=== PATIENT | male | born 1950 | race Caucasian/White ===

== ENCOUNTER 2018-02-24 12:25 | Inpatient (IN) | payer MEDICARE, OTHER, SELFPAY ==
[2018-02-24] VITALS (7 sets, daily range): BP systolic 115–148; BP diastolic 63–95; PULSE 55–73; RESP 13–18; TEMP 36.7–36.8; O2SAT 94–98; BMI 38.0
--- NOTE | 2018-02-24 13:10 | DI.CT.S_ITS ---
PROCEDURE: CT ABDOMEN PELVIS W CON INDICATIONS: 67 year-old male with abdominal pain for 6 days, with decreased appetite. TECHNIQUE: After the administration of intravenous contrast, 5 mm thick sections acquired from the diaphragm to the symphysis. 5 mm coronal and sagittal reformats were acquired. For radiation dose reduction, the following was used: automated exposure control, adjustment of mA and/or kV according to patient size. COMPARISON: None. FINDINGS: Image quality: Excellent. ABDOMEN: Lung bases: Lung bases are clear. Heart size is normal. Solid organs: Liver is normal in size, with 3.0 x 1.3 cm lenticular hypodense lesion in the inferior right hepatic lobe. There is diffuse fatty infiltration of the liver. Gallbladder is surgically absent. Biliary system is non dilated. Pancreas enhances normally. Spleen is normal in size and enhancement. No adrenal nodules. Kidneys demonstrate normal size and enhancement, with asymmetric moderate right hydronephrosis. Multiple bilateral nonobstructing renal stones are present, measuring up to 4 mm on the right and 8 mm on the left. No ureteral stones identified; both ureters appear normal in caliber throughout their courses. Peritoneum and bowel: There is moderate dilation of multiple small bowel loops, without wall or fold thickening. A transition point is noted in the medial right lower quadrant on axial image 54 and coronal image 35, with the terminal ileum decompressed. The colon appears normal in caliber throughout, with scattered diverticula. The appendix appears normal. No free fluid or air. Nodes and vessels: No retroperitoneal or mesenteric adenopathy by size criteria. Aorta and inferior vena cava are normal in size, with scattered aortoiliac atherosclerosis. Miscellaneous: No ventral hernias. PELVIS: Genitourinary: Bladder wall thickness is normal. Prostate gland is normal in size. Miscellaneous: No inguinal hernias or adenopathy. Bones: No suspicious bony lesions. Incidental bone island is present superior to the left acetabular roof. No vertebral body compression fractures. There is lower lumbar and lower thoracic spine disc degeneration. IMPRESSION: 1. Findings of high grade distal small bowel obstruction just proximal to the terminal ileum, presumably secondary to adhesions in the absence of any visible masses or hernias. 2. Moderate asymmetric right hydronephrosis with normal ureteral caliber, consistent with background right ureteropelvic junction stricture. Multiple bilateral nonobstructing renal stones are present, measuring up to 8 mm on the left. 3. Diffuse fatty infiltration of the liver, along with indeterminate 3.0 x 1.3 cm lenticular hypovascular lesion in the inferior right hepatic lobe, possibly sequelae of remote ablation procedure. If no outside institution abdomen CTs are available for direct comparison, consider nonemergent liver protocol pre- and post contrast abdominal MRI for further characterization. Dictated by: Sloan Loyd M.D. on 02/24/2018 at 14:09 Approved by: Sloan Loyd M.D. on 02/24/2018 at 14:24
[2018-02-24] MEDS: ONDANSETRON 4 MG/2 ML INJ IV (13:23)
[2018-02-24] MEDS: SODIUM CHLORIDE 0.9% 1,000 ML 150 ML IV (13:23)
[2018-02-24 13:28] LABS: Add Manual Diff / Slide Review NO; Basophils Percent Auto 1.1 % (0-2); Hematocrit 45.9 % (41-53); Hemoglobin 16.2 g/dL (13.5-17.5); Lymphocytes Percent Auto 20.5 % (25-40); Mean Corpuscular HGB Conc 35.4 % (30-36); Mean Corpuscular Hemoglobin 32.6 PG (26-34); Mean Corpuscular Volume 92.2 fL (80-100); Monocytes Percent Auto 17.8 % (3-14); Neutrophils Absolute Auto 2600 /uL (3000-5900); Neutrophils Percent Auto 59.6 % (50-75); Platelet Count 149 X10^3/uL (150-400); Red Blood Cell Count 4.98 X10^6/uL (4.5-5.9); Red Cell Distribution Width 12.1 % (11.6-14.8); White Blood Cell Count 4.4 X10^3/uL (4.5-11.0)
--- NOTE | 2018-02-24 13:34 | ED_ITS ---
HPI - Abdominal Pain General Chief Complaint: Abdominal Pain Stated Complaint: SMALL INTESTINAL BLOCKAGE Time Seen by Provider: 02/24/18 13:09 Source: patient and RN notes reviewed Mode of arrival: ambulatory Limitations: no limitations History of Present Illness HPI narrative: Patient is a 67-year-old male who presents with abdominal pain ongoing for 1 week. He said that he felt some cramping which was relieved with have a Vicodin. He has been but no real vomiting. He is passing gas. He apparently had an outpatient x-ray which did show an obstruction today. He is instructed to immediately go to the ER. He denies any fever or chills. MD complaint: abdominal pain Onset (ago): week(s) (1) Related Data Home Medications Medication Instructions Recorded Confirmed Vitamin D3 2,200 units PO QHS 02/24/18 02/24/18 allopurinol 100 mg PO DAILY 02/24/18 02/24/18 aspirin 81 mg PO DAILY 02/24/18 02/24/18 atenolol 25 mg PO DAILY 02/24/18 02/24/18 coenzyme Q10 [Co Q-10] 100 mg PO BID 02/24/18 02/24/18 hydrochlorothiazide 25 mg PO DAILY 02/24/18 02/24/18 magnesium 0.5 tsp PO QPM 02/24/18 02/24/18 vitamin B complex 1 tab PO DAILY 02/24/18 02/24/18 Allergies Allergy/AdvReac Type Severity Reaction Status Date / Time No Known Drug Allergies Allergy Verified 02/24/18 13:14 Review of Systems Review of Systems All systems reviewed & are unremarkable except as noted in HPI and below Constitutional Denies chills, Denies fever(s), Denies lethargy and Denies weakness Cardiovascular Denies chest pain, Denies irregular heart rhythm, Denies lightheadedness, Denies palpitations, Denies dyspnea, Denies dyspnea on exertion and Denies orthopnea Respiratory Denies cough, Denies dyspnea, Denies dyspnea on exertion and Denies wheezing Gastrointestinal Gastrointestinal: Reports as per HPI Musculoskeletal Denies back pain, Denies muscle weakness, Denies numbness and Denies tingling Neurologic Denies numbness, Denies tingling and Denies weakness Endocrine Denies palpitations Allergic/Immunologic Denies wheezing PFSH Medical History Small bowel obstruction (Acute) Hypertension (Acute) Kidney stones (Resolved) Surgical History History of cholecystectomy (Resolved) Family History Grandfather Prostate cancer Mother Cancer Social History household members: spouse Smoking Status: Never smoker alcohol intake: never substance use type: does not use Exam Initial Vital Signs Initial Vital Signs: Vital Signs Temperature 98.2 F 02/24/18 13:02 Pulse Rate 73 02/24/18 13:02 Respiratory Rate 13 02/24/18 13:02 Blood Pressure 148/95 H 02/24/18 13:02 Pulse Oximetry 95 02/24/18 13:02 Const General: cooperative Nutritional Appearance: obese Orientation: alert, awake and oriented x3 Chest Chest: normal inspection of the chest Resp Effort & Inspection: normal respiratory effort, able to speak in complete sentences, no respiratory distress and no use of accessory muscles Auscultation: clear to auscultation bilaterally, no rales, no rhonchi and no wheezes Cardio Rate: regular rate Rhythm: regular rhythm Heart Sounds: no click, no gallops, no murmurs and no rubs Pulses: normal peripheral pulses GI Inspection: distended Palpation: firm, No guarding and No tender Auscultation: hyperactive bowel sounds Skin General: no rashes or lesions noted, No jaundice and No petechiae Neuro General: alert, oriented x3, gait normal and no focal motor deficits Speech: speech normal Course Orders Ordered: ED Orders 02/24/18 13:10 CT abdomen pelvis w con Stat 02/24/18 13:15 Complete Blood Count AUTO DIFF Stat Comprehensive Metabolic Panel Stat Lactate (Lactic Acid) Stat Lipase Stat 02/24/18 13:32 Ictotest Urine Stat Urinalysis and Microscopic Stat 02/25/18 05:00 Basic Metabolic Panel Routine Complete Blood Count AUTO DIFF Routine Enoxaparin Sodium (Lovenox) 40 mg SUBCUT 2100 JENNIFER Promethazine HCl 12.5 mg/ (Sodium Chloride) 50.5 mls @ 202 mls/hr IV Q6HR PRN PRN Reason: Nausea And Vomiting Sodium Chloride (Normal Saline 0.9%) 1,000 mls @ 125 mls/hr IV CONT JENNIFER Labetalol HCl (Trandate) 10 mg IV Q6HR PRN PRN Reason: DBP>90 or SBP>180 Morphine Sulfate (Morphine Sulfate) 4 mg IV Q4HR PRN PRN Reason: Pain, Moderate Ondansetron HCl (Zofran) 4 mg IV Q6HR JENNIFER Pantoprazole Sodium (Protonix) 40 mg IV DAILY JENNIFER Discontinued Medications Sodium Chloride (Normal Saline 0.9%) 1,000 mls @ 150 mls/hr IV CONT JENNIFER Last Admin: 02/24/18 13:23 Dose: 150 mls/hr Ondansetron HCl (Zofran) 4 mg IV NOW ONE Stop: 02/24/18 13:10 Last Admin: 02/24/18 13:23 Dose: 4 mg Vital Signs - 8 hr 02/24/18 13:02 02/24/18 13:11 02/24/18 14:00 Temperature 98.2 F 98.2 F Pulse Rate 73 73 59 L Respiratory Rate 13 13 15 Blood Pressure 148/95 H 148/95 H Blood Pressure [Right Arm] 119/71 Pulse Oximetry 95 95 94 02/24/18 15:00 02/24/18 16:32 02/24/18 17:15 Temperature 98.1 F Pulse Rate 57 L 57 L 62 Respiratory Rate 16 18 16 Blood Pressure 144/88 H Blood Pressure [Right Arm] 120/72 115/63 Pulse Oximetry 94 98 94 MDM - Abdominal Pain Lab Data Result diagrams: 02/24/18 13:15 02/24/18 13:15 Lab Results 02/24/18 02/24/18 02/24/18 Range/Units 13:15 13:15 13:15 WBC 4.4 L (4.5-11.0) X10^3/uL RBC 4.98 (4.5-5.9) X10^6/uL Hgb 16.2 (13.5-17.5) g/dL Hct 45.9 (41-53) % MCV 92.2 (80-100) fL MCH 32.6 (26-34) PG MCHC 35.4 (30-36) % RDW 12.1 (11.6-14.8) % Plt Count 149 L (150-400) X10^3/uL Neut % (Auto) 59.6 (50-75) % Lymph % (Auto) 20.5 L (25-40) % [place] % (Auto) 17.8 H (3-14) % Eos % (Auto) 1.0 L (2-4) % Baso % (Auto) 1.1 (0-2) % Neut # (Auto) 2600 L (5744-1198) /uL Sodium 131 L (137-145) mmol/L Potassium 2.9 L (3.4-5.1) mmol/L Chloride 81 L (98-107) mmol/L Carbon Dioxide 38 H (22-32) mmol/L BUN 49 H (9-20) mg/dL Creatinine 1.00 (0.66-1.25) mg/dL Estimated GFR > 60.0 (>60) mL/min BUN/Creatinine Ratio 49.0 H (6-22) Glucose 358 H (80-110) mg/dL Lactate 1.3 (0.7-2.1) mmol/L Calcium 10.1 (8.4-10.2) mg/dL Total Bilirubin 2.0 H (0.2-1.3) mg/dL AST 52 (17-59) IU/L ALT 73 H (21-72) IU/L Alkaline Phosphatase 74 (38-126) U/L Total Protein 7.1 (6.3-8.2) g/dL Albumin 4.0 (3.5-5.0) g/dL Globulin 3.1 (1.7-4.1) g/dL Albumin/Globulin Ratio 1.3 (1.0-2.8) Lipase 208 (23-300) U/L Urine Color Urine Appearance Urine pH (4.5-8.0) Ur Specific [place] (1.000-1.035) Urine Protein (Negative) Urine Glucose (UA) (Negative) g/dL Urine Ketones (NEGATIVE) Urine Occult Blood (Negative) Urine Nitrate (Negative) Urine Bilirubin (NEGATIVE) Urine Ictotest (Negative) Urine Urobilinogen (0.2) E.U./dL Ur Leukocyte Esterase (NEGATIVE) Urine RBC (0-5/HPF) Urine WBC (0-5/HPF) Urine Bacteria (None) Ur Culture Indicated? Micro UA Comment 02/24/18 Range/Units 13:32 WBC (4.5-11.0) X10^3/uL RBC (4.5-5.9) X10^6/uL Hgb (13.5-17.5) g/dL Hct (41-53) % MCV (80-100) fL MCH (26-34) PG MCHC (30-36) % RDW (11.6-14.8) % Plt Count (150-400) X10^3/uL Neut % (Auto) (50-75) % Lymph % (Auto) (25-40) % [place] % (Auto) (3-14) % Eos % (Auto) (2-4) % Baso % (Auto) (0-2) % Neut # (Auto) (7143-7917) /uL Sodium (137-145) mmol/L Potassium (3.4-5.1) mmol/L Chloride (98-107) mmol/L Carbon Dioxide (22-32) mmol/L BUN (9-20) mg/dL Creatinine (0.66-1.25) mg/dL Estimated GFR (>60) mL/min BUN/Creatinine Ratio (6-22) Glucose (80-110) mg/dL Lactate (0.7-2.1) mmol/L Calcium (8.4-10.2) mg/dL Total Bilirubin (0.2-1.3) mg/dL AST (17-59) IU/L ALT (21-72) IU/L Alkaline Phosphatase (38-126) U/L Total Protein (6.3-8.2) g/dL Albumin (3.5-5.0) g/dL Globulin (1.7-4.1) g/dL Albumin/Globulin Ratio (1.0-2.8) Lipase (23-300) U/L Urine Color Yellow Urine Appearance Clear Urine pH 5.0 (4.5-8.0) Ur Specific [place] 1.015 (1.000-1.035) Urine Protein Negative (Negative) Urine Glucose (UA) 2+ H (Negative) g/dL Urine Ketones Trace H (NEGATIVE) Urine Occult Blood Negative (Negative) Urine Nitrate Negative (Negative) Urine Bilirubin 1+ H (NEGATIVE) Urine Ictotest Negative (Negative) Urine Urobilinogen 2.0 H (0.2) E.U./dL Ur Leukocyte Esterase Negative (NEGATIVE) Urine RBC None seen (0-5/HPF) Urine WBC None seen (0-5/HPF) Urine Bacteria None seen (None) Ur Culture Indicated? Cult not indicated Micro UA Comment Microscopic normal Imaging Data CT scan - abdomen: Radiologist's impression: View Report History [address] [address] [address] Scan Report Signed Patient: Salvador Gillette MR#: [id number] : 1950 Acct:[id number] Age/Sex: 67 / M Date of Service: 02/24/18 Loc: ED Accession Number: [id number] Procedure: CT abdomen pelvis w con Ordering Provider: Milagros Nathan D.O. PROCEDURE: CT ABDOMEN PELVIS W CON INDICATIONS: 67 year-old male with abdominal pain for 6 days, with decreased appetite. TECHNIQUE: After the administration of intravenous contrast, 5 mm thick sections acquired from the diaphragm to the symphysis. 5 mm coronal and sagittal reformats were acquired. For radiation dose reduction, the following was used: automated exposure control, adjustment of mA and/or kV according to patient size. COMPARISON: None. FINDINGS: Image quality: Excellent. ABDOMEN: Lung bases: Lung bases are clear. Heart size is normal. Solid organs: Liver is normal in size, with 3.0 x 1.3 cm lenticular hypodense lesion in the inferior right hepatic lobe. There is diffuse fatty infiltration of the liver. Gallbladder is surgically absent. Biliary system is non dilated. Pancreas enhances normally. Spleen is normal in size and enhancement. No adrenal nodules. Kidneys demonstrate normal size and enhancement, with asymmetric moderate right hydronephrosis. Multiple bilateral nonobstructing renal stones are present, measuring up to 4 mm on the right and 8 mm on the left. No ureteral stones identified; both ureters appear normal in caliber throughout their courses. Peritoneum and bowel: There is moderate dilation of multiple small bowel loops, without wall or fold thickening. A transition point is noted in the medial right lower quadrant on axial image 54 and coronal image 35, with the terminal ileum decompressed. The colon appears normal in caliber throughout, with scattered diverticula. The appendix appears normal. No free fluid or air. Nodes and vessels: No retroperitoneal or mesenteric adenopathy by size criteria. Aorta and inferior vena cava are normal in size, with scattered aortoiliac atherosclerosis. Miscellaneous: No ventral hernias. PELVIS: Genitourinary: Bladder wall thickness is normal. Prostate gland is normal in size. Miscellaneous: No inguinal hernias or adenopathy. Bones: No suspicious bony lesions. Incidental bone island is present superior to the left acetabular roof. No vertebral body compression fractures. There is lower lumbar and lower thoracic spine disc degeneration. IMPRESSION: 1. Findings of high grade distal small bowel obstruction just proximal to the terminal ileum, presumably secondary to adhesions in the absence of any visible masses or hernias. 2. Moderate asymmetric right hydronephrosis with normal ureteral caliber, consistent with background right ureteropelvic junction stricture. Multiple bilateral nonobstructing renal stones are present, measuring up to 8 mm on the left. 3. Diffuse fatty infiltration of the liver, along with indeterminate 3.0 x 1.3 cm lenticular hypovascular lesion in the inferior right hepatic lobe, possibly sequelae of remote ablation procedure. If no outside institution abdomen CTs are available for direct comparison, consider nonemergent liver protocol pre- and post contrast abdominal MRI for further characterization. Dictated by: Sloan Loyd M.D. on 02/24/2018 at 14:09 MDM Narrative Medical decision making narrative: Patient is found to have small-bowel obstruction, high-grade stenosis. NG tube is placed. Dr. Candelario is accepted patient. Patient not complaining of pain or nausea. Discharge Plan Departure Patient Disposition: Admitted As Inpatient Clinical Impression: Small bowel obstruction Discharge Date/Time: 02/24/18 17:15 Interventions: ED Discharge Assessment Last Done: 02/24/18 16:24 Admit Date/Time: 02/24/18 16:30 Admit Provider: Devin Candelario
[2018-02-24 13:35] LABS: Alanine Aminotransferase 73 IU/L (21-72); Albumin Globulin Ratio 1.3 (1.0-2.8); Alkaline Phosphatase 74 U/L (38-126); Aspartate Aminotransferase 52 IU/L (17-59); Blood Urea Nitrogen 49 mg/dL (9-20); Calcium 10.1 mg/dL (8.4-10.2); Carbon Dioxide 38 mmol/L (22-32); Chloride 81 mmol/L (98-107); Estimated Glomerular Filt Rate > 60.0 mL/min (>60); Globulin 3.1 g/dL (1.7-4.1); Glucose 358 mg/dL (80-110); HEMOLYSIS 70 (0-50); Lipase 208 U/L (23-300); Potassium 2.9 mmol/L (3.4-5.1); Sodium 131 mmol/L (137-145); Total Protein 7.1 g/dL (6.3-8.2)
[2018-02-24 13:36] LABS: Bacteria Urine None Seen; RBC Urine None Seen (0-5/HPF); WBC Urine None Seen (0-5/HPF)
[2018-02-24 13:37] LABS: Appearance Urine UA CLEAR; Bilirubin Urine UA 1+ (NEGATIVE); Color Urine UA YELLOW; Glucose Urine UA 2+ g/dL (Negative); Ketones Urine UA TRACE (NEGATIVE); Leukocyte Esterase Urine UA NEGATIVE (NEGATIVE); Nitrite Urine UA Negative (Negative); Occult Blood Urine UA NEGATIVE (Negative); Protein Urine UA NEGATIVE (Negative); Specific Gravity Urine UA 1.015 (1.000-1.035)
[2018-02-24 13:39] LABS: Lactate (Lactic Acid) 1.3 mmol/L (0.7-2.1)
[2018-02-24 13:44] LABS: Ictotest Urine Negative (Negative)
[2018-02-24 13:45] LABS: Culture Indicated Urine Cult Not Indicated; Urine Comments Microscopic Normal
--- NOTE | 2018-02-24 15:22 | PC.NURSE ---
14F NG tube inserted into the left nare. Pt tolerated the procedure well.
--- NOTE | 2018-02-24 17:47 | P.HP_ITS ---
History of Present Illness Chief complaint: Small bowel obstruction Narrative: Salvador Gillette is a 67 year old male who presented to the emergency department earlier this afternoon with a one-week history of abdominal distention, belching, poor appetite, and decreased bowel function. He denies any fever or chills. He has had only 1 episode of nausea and vomiting approximately 5 days ago now but none since. He remains slightly anorexic. He has been tolerating some liquids orally including a supplemental protein shake daily. He has not eaten a normal meal in approximately 7 days. He generally has 1 bowel movement per day. He has had only 2 bowel movements in the last 5 or 6 days which he describes as somewhat small in caliber. There were several small liquid stools during 1 of those episodes as well. No melena, hematochezia, or bright red blood per rectum. Denies pain with defecation. No significant flatus between bowel function. He had several episodes of crampy diffuse abdominal pain several days ago for which he took some oral narcotics 1 time. He denies pain currently. Still feeling subjectively distended however. Denies any dysuria or hematuria. He has never had any similar symptoms in the past. Patient History Medical History Small bowel obstruction (Acute) Hypertension (Acute) Kidney stones (Resolved) Surgical History History of cholecystectomy (Resolved) Family & Social History Tobacco & Substance use: Smoking Status Never smoker alcohol intake 1-2 drinks daily Meds Home Medications Medication Instructions Recorded Confirmed Type Vitamin D3 2,200 units PO QHS 02/24/18 02/24/18 History allopurinol 100 mg PO DAILY 02/24/18 02/24/18 History aspirin 81 mg PO DAILY 02/24/18 02/24/18 History atenolol 25 mg PO DAILY 02/24/18 02/24/18 History coenzyme Q10 [Co Q-10] 100 mg PO BID 02/24/18 02/24/18 History hydrochlorothiazide 25 mg PO DAILY 02/24/18 02/24/18 History magnesium 0.5 tsp PO QPM 02/24/18 02/24/18 History vitamin B complex 1 tab PO DAILY 02/24/18 02/24/18 History Allergies Allergy/AdvReac Type Severity Reaction Status Date / Time No Known Drug Allergies Allergy Verified 02/24/18 13:14 Review of Systems Constitutional Constitutional: Reports anorexia, Denies chills, Denies fatigue, Denies fever(s) , Reports snoring and Denies weakness ENT Ears, Nose, Mouth, and Throat: No difficulty swallowing, No dizziness and No hoarseness Cardiovascular Cardiovascular: Denies chest pain at rest, Denies chest pain with activity and Reports irregular heart rhythm (History of atrial fibrillation, resolved after ablation) Respiratory Respiratory: Reports snoring and Denies wheezing Gastrointestinal Gastrointestinal: Reports as per HPI and Denies dysphagia Genitourinary Genitourinary: Reports as per HPI Musculoskeletal Musculoskeletal: Denies back pain and Denies joint swelling Integumentary/Breasts Skin/Breast: Denies jaundice Neurologic Neurologic: Denies dizziness and Denies weakness Psychiatric Psychiatric: Denies anxiety Endocrine Endocrine: Denies fatigue, Denies polydipsia and Denies polyuria Hematologic/Lymphatic Hematologic/Lymphatic: Denies easy bruising and Denies lymphadenopathy Allergic/Immunologic Allergic/Immunologic: Denies wheezing Exam Vital Signs (past 8 hours): Vital Signs - 8 hr 3 02/24/18 13:02 02/24/18 13:11 02/24/18 14:00 Temperature 98.2 F 98.2 F Pulse Rate 73 73 59 L Respiratory Rate 13 13 15 Blood Pressure 148/95 H 148/95 H Blood Pressure [Right Arm] 119/71 Pulse Oximetry 95 95 94 3 02/24/18 15:00 02/24/18 16:32 Temperature Pulse Rate 57 L 57 L Respiratory Rate 16 18 Blood Pressure Blood Pressure [Right Arm] 120/72 115/63 Pulse Oximetry 94 98 Pulse Oximetry 98 Oxygen Delivery Method Room Air Narrative Exam Narrative: Well-nourished well-developed male lying comfortably in bed in the emergency department in no acute distress. Alert oriented x3. accompanies him at the bedside during my visit. Sclera are nonicteric Neck is supple without lymphadenopathy. Trachea is midline Chest is clear to auscultation bilaterally. He has a few irregular beats on auscultation. No wheezes or rhonchi Abdomen demonstrates few active bowel sounds. He is markedly tympanitic and distended throughout. He has palpable loops of dilated bowel. However, he is completely nontender to palpation with no guarding or rebound. I appreciate no masses. He has well-healed laparoscopic scars with a small umbilical hernia which is easily reducible. Femoral pulses are palpable bilaterally and symmetric. No inguinal lymphadenopathy. No inguinal masses. No inguinal hernias. Rectal examination reveals normal tone with no external lesions or hemorrhoids. Prostate is smooth without nodules. He is completely nontender to palpation. No rectal masses. There is soft brown stool in the vault. No gross blood. Extremities show no clubbing or cyanosis. He has hyperpigmentation of the pretibial area circumferentially bilaterally consistent with venous insufficiency. Trace edema bilaterally at the ankles. Objective Labs Result Diagrams: 02/24/18 13:15 02/24/18 13:15 Labs: Laboratory Results - last 24 hr 02/24/18 02/24/18 02/24/18 13:15 13:15 13:15 WBC 4.4 L RBC 4.98 Hgb 16.2 Hct 45.9 MCV 92.2 MCH 32.6 MCHC 35.4 RDW 12.1 Plt Count 149 L Neut % (Auto) 59.6 Lymph % (Auto) 20.5 L [place] % (Auto) 17.8 H Eos % (Auto) 1.0 L Baso % (Auto) 1.1 Neut # (Auto) 2600 L Sodium 131 L Potassium 2.9 L Chloride 81 L Carbon Dioxide 38 H BUN 49 H Creatinine 1.00 Estimated GFR > 60.0 BUN/Creatinine Ratio 49.0 H Glucose 358 H Lactate 1.3 Calcium 10.1 Total Bilirubin 2.0 H AST 52 ALT 73 H Alkaline Phosphatase 74 Total Protein 7.1 Albumin 4.0 Globulin 3.1 Albumin/Globulin Ratio 1.3 Lipase 208 Urine Color Urine Appearance Urine pH Ur Specific [place] Urine Protein Urine Glucose (UA) Urine Ketones Urine Occult Blood Urine Nitrate Urine Bilirubin Urine Ictotest Urine Urobilinogen Ur Leukocyte Esterase Urine RBC Urine WBC Urine Bacteria Ur Culture Indicated? Micro UA Comment 02/24/18 13:32 WBC RBC Hgb Hct MCV MCH MCHC RDW Plt Count Neut % (Auto) Lymph % (Auto) [place] % (Auto) Eos % (Auto) Baso % (Auto) Neut # (Auto) Sodium Potassium Chloride Carbon Dioxide BUN Creatinine Estimated GFR BUN/Creatinine Ratio Glucose Lactate Calcium Total Bilirubin AST ALT Alkaline Phosphatase Total Protein Albumin Globulin Albumin/Globulin Ratio Lipase Urine Color Yellow Urine Appearance Clear Urine pH 5.0 Ur Specific [place] 1.015 Urine Protein Negative Urine Glucose (UA) 2+ H Urine Ketones Trace H Urine Occult Blood Negative Urine Nitrate Negative Urine Bilirubin 1+ H Urine Ictotest Negative Urine Urobilinogen 2.0 H Ur Leukocyte Esterase Negative Urine RBC None seen Urine WBC None seen Urine Bacteria None seen Ur Culture Indicated? Cult not indicated Micro UA Comment Microscopic normal Assessment & Plan (1) History of cholecystectomy: Problem details: Resolved. No current issue Current visit: Yes Status: Resolved (2) Kidney stones: Problem details: Resolved. No current issue Current visit: Yes Status: Resolved (3) Small bowel obstruction: Problem details: I have personally reviewed the patient's CT scan with the staff radiologist. He has evidence of a distal small-bowel obstruction with transition point proximal to the terminal ileum. No obvious thickened loops of bowel. Current visit: Yes Status: Acute (4) Colon polyps: Current visit: Yes Status: Acute Plan: Plan: I discussed my impression findings with the patient and his in detail. He has no evidence of ischemic bowel. At this time he has no evidence for acute surgical intervention although I do not have a clear etiology for his bowel obstruction, and his symptoms have lasted 1 week now. Small possibility of adhesions from laparoscopic cholecystectomy but this would be less likely. He has had normal colonoscopy 2 years ago, and this is clearly a small bowel obstruction rather than large bowel pathology. No history or symptoms to suggest inflammatory bowel disease. He has evidence of significant dehydration and requires aggressive fluid resuscitation. Nasogastric tube has been inserted per emergency department. Continue this to low intermittent suction. NPO other than ice chips. Repeat his CBC and basic metabolic panel tomorrow. If he does not improve over the next 24 hours or so then he may very likely require exploratory laparotomy. If he does show evidence of improvement with regard to return of bowel function and decreased distention then we will continue the conservative non operative measures as above. I explained to him clearly that if he has evidence of clinical deterioration such as progressive pain, fever, and/or leukocytosis then he would require urgent laparotomy. All questions were answered to his satisfaction, and he voiced understanding. Orders were written.
[2018-02-24] MEDS: SODIUM CHLORIDE 0.9% 1,000 ML 125 ML IV (18:30)
--- NOTE | 2018-02-24 18:35 | PC.NURSE ---
Pt awake, denies discomfort. SpO2 97% RA. NG intact/patent. IV infusing as per orders w/o incidence. Oriented to room and call system. Call light w/in reach.
[2018-02-24] MEDS: ENOXAPARIN 40 MG/0.4 ML SYRINGE SUBCUT (21:52)
[2018-02-25] VITALS (8 sets, daily range): BP systolic 117–141; BP diastolic 73–81; PULSE 53–66; RESP 15–22; TEMP 36.6–37.3; O2SAT 94–97
--- NOTE | 2018-02-25 | DI.RAD.S_ITS ---
PROCEDURE: FL SMALL BOWEL FOLLOW THROUGH INDICATIONS: small bowel obstruction, partial COMPARISON: [facility], CR, XR ACUTE ABDOMEN SERIES, 02/25/2018, 5:11. FINDINGS: KUB: Preprocedural mineral engineer film demonstrates a nonobstructed small bowel gas pattern. No suspicious abdominal calcifications. Visualized solid organ contours appear normal. No suspicious bony abnormalities. Surgical clips are present in the right upper quadrant. Tip of the NG tube is present. Small bowel: There is normal transit time of Gastrografin through the small bowel despite partial obstruction, contrast in the colon at 2 hours 30 minutes. Small bowel loops are of dilated caliber throughout. Mucosal folds are smooth and of normal thickness. No strictures, intraluminal masses, or extrinsic mass effects are noted. The terminal ileum is not identified but contrast in the proximal colon is verified by spot images at fluoroscopy. IMPRESSION: Partial small bowel obstruction. Transit of Gastrografin through the small intestine at 2-1/2 hours. Dictated by: Hector Stapleton M.D. on 02/25/2018 at 12:27 Approved by: Hector Stapleton M.D. on 02/25/2018 at 12:31
--- NOTE | 2018-02-25 | DI.RAD.S_ITS ---
PROCEDURE: XR ACUTE ABDOMEN SERIES INDICATIONS: small bowel obstruction, distension TECHNIQUE: One view chest and two views of the abdomen were acquired. COMPARISON: [facility], CT, CT ABDOMEN PELVIS W CON, 02/24/2018, 13:33. FINDINGS: Surgical changes and devices: Nasogastric tube appears to be below the diaphragm. Cholecystectomy clips. Chest: Lungs are clear. Heart size is normal. No pleural effusions. No pneumoperitoneum. Abdomen: Bowel gas pattern is abnormal with multiple dilated small bowel loops showing stairstep air-fluid levels consistent with partial obstruction. No suspicious calcifications. Visualized solid organ contours appear normal. Contrast present within the urinary bladder from prior CT imaging. Bones: No suspicious bony lesions. IMPRESSION: 1. Nasogastric tube appears to be in expected location. 2. Status post cholecystectomy. 3. High-grade partial small bowel obstruction 4. No acute cardiopulmonary abnormality. Dictated by: Hector Stapleton M.D. on 02/25/2018 at 8:27 Approved by: Hector Stapleton M.D. on 02/25/2018 at 8:31
[2018-02-25] MEDS: SODIUM CHLORIDE 0.9% 1,000 ML 125 ML IV ×2 (00:41→18:21)
[2018-02-25 07:02] LABS: Add Manual Diff / Slide Review NO; Basophils Percent Auto 0.7 % (0-2); Hematocrit 43.1 % (41-53); Hemoglobin 15.2 g/dL (13.5-17.5); Lymphocytes Percent Auto 21.8 % (25-40); Mean Corpuscular HGB Conc 35.4 % (30-36); Mean Corpuscular Hemoglobin 32.7 PG (26-34); Mean Corpuscular Volume 92.5 fL (80-100); Monocytes Percent Auto 17.1 % (3-14); Neutrophils Absolute Auto 2500 /uL (3000-5900); Neutrophils Percent Auto 58.4 % (50-75); Platelet Count 135 X10^3/uL (150-400); Red Blood Cell Count 4.66 X10^6/uL (4.5-5.9); Red Cell Distribution Width 12.2 % (11.6-14.8); White Blood Cell Count 4.3 X10^3/uL (4.5-11.0)
[2018-02-25 07:05] LABS: HEMOLYSIS < 15 (0-50)
[2018-02-25 07:06] LABS: BUN Creatinine Ratio 42.2 (6-22); Blood Urea Nitrogen 38 mg/dL (9-20); Calcium 9.1 mg/dL (8.4-10.2); Carbon Dioxide 39 mmol/L (22-32); Chloride 88 mmol/L (98-107); Estimated Glomerular Filt Rate > 60.0 mL/min (>60); Glucose 230 mg/dL (80-110); Sodium 136 mmol/L (137-145)
[2018-02-25 07:17] LABS: Potassium 2.5 mmol/L (3.4-5.1)
[2018-02-25] MEDS: PANTOPRAZOLE 40 MG VIAL IV (09:00)
--- NOTE | 2018-02-25 09:14 | P.PN_ITS ---
Subjective Date Patient Seen: 02/25/18 Time Patient Seen: 09:10 Interval history: Patient continues to deny pain. No nausea or vomiting. Remains markedly distended. Did pass a small amount of flatus early this morning but none since. No bowel movement. Not particularly hungry this morning. Complaining mostly of irritation from the NG tube. Exam Vital Signs (past 8 hours): Vital Signs - 8 hr 3 02/25/18 05:50 02/25/18 07:46 Temperature 97.9 F 98.3 F Pulse Rate 56 L 57 L Respiratory Rate 16 22 Blood Pressure 125/73 H 128/76 H Pulse Oximetry 94 94 Pulse Oximetry 94 Oxygen Delivery Method CPAP Narrative Exam Narrative: Well-nourished well-developed male sitting comfortably in bedside chair in no acute distress. Alert oriented x3. His is at the bedside during my visit this morning. Nasogastric tube remains in position draining mostly clear fluid consistent with his ice chips intake. No significant bilious output. Regular rate and rhythm Abdomen remains markedly distended and tympanitic with palpable loops of bowel. However, he is completely soft and nontender. No guarding or rebound. No masses otherwise. Objective Labs Result Diagrams: 02/25/18 06:15 02/25/18 06:15 Labs: Laboratory Results - last 24 hr 02/24/18 02/24/18 02/24/18 13:15 13:15 13:15 WBC 4.4 L RBC 4.98 Hgb 16.2 Hct 45.9 MCV 92.2 MCH 32.6 MCHC 35.4 RDW 12.1 Plt Count 149 L Neut % (Auto) 59.6 Lymph % (Auto) 20.5 L [place] % (Auto) 17.8 H Eos % (Auto) 1.0 L Baso % (Auto) 1.1 Neut # (Auto) 2600 L Sodium 131 L Potassium 2.9 L Chloride 81 L Carbon Dioxide 38 H BUN 49 H Creatinine 1.00 Estimated GFR > 60.0 BUN/Creatinine Ratio 49.0 H Glucose 358 H Lactate 1.3 Calcium 10.1 Total Bilirubin 2.0 H AST 52 ALT 73 H Alkaline Phosphatase 74 Total Protein 7.1 Albumin 4.0 Globulin 3.1 Albumin/Globulin Ratio 1.3 Lipase 208 Urine Color Urine Appearance Urine pH Ur Specific [place] Urine Protein Urine Glucose (UA) Urine Ketones Urine Occult Blood Urine Nitrate Urine Bilirubin Urine Ictotest Urine Urobilinogen Ur Leukocyte Esterase Urine RBC Urine WBC Urine Bacteria Ur Culture Indicated? Micro UA Comment 02/24/18 02/25/18 02/25/18 13:32 06:15 06:15 WBC 4.3 L RBC 4.66 Hgb 15.2 Hct 43.1 MCV 92.5 MCH 32.7 MCHC 35.4 RDW 12.2 Plt Count 135 L Neut % (Auto) 58.4 Lymph % (Auto) 21.8 L [place] % (Auto) 17.1 H Eos % (Auto) 2.0 Baso % (Auto) 0.7 Neut # (Auto) 2500 L Sodium 136 L Potassium 2.5 L* Chloride 88 L Carbon Dioxide 39 H BUN 38 H Creatinine 0.90 Estimated GFR > 60.0 BUN/Creatinine Ratio 42.2 H Glucose 230 H D Lactate Calcium 9.1 Total Bilirubin AST ALT Alkaline Phosphatase Total Protein Albumin Globulin Albumin/Globulin Ratio Lipase Urine Color Yellow Urine Appearance Clear Urine pH 5.0 Ur Specific [place] 1.015 Urine Protein Negative Urine Glucose (UA) 2+ H Urine Ketones Trace H Urine Occult Blood Negative Urine Nitrate Negative Urine Bilirubin 1+ H Urine Ictotest Negative Urine Urobilinogen 2.0 H Ur Leukocyte Esterase Negative Urine RBC None seen Urine WBC None seen Urine Bacteria None seen Ur Culture Indicated? Cult not indicated Micro UA Comment Microscopic normal Assessment & Plan Plan: Plan: 67-year-old male with high-grade partial small-bowel obstruction distally on CT scan essentially unchanged since admission yesterday. He has not responded significantly to conservative measures consisting of bowel rest, nasogastric decompression, and IV fluid resuscitation. He remains hypokalemic. We will supplement this with potassium chloride IV today. He has no history of diabetes yet his blood sugars are running relatively high. He may require internal medicine consult for such. If blood sugars remain high then will place on sliding scale insulin. Will repeat CBC and basic metabolic panel tomorrow. Currently has no evidence of compromised bowel or ischemic enteritis. Nevertheless, he has had a bowel obstruction now clinically for approximately 1 week which still remains significant with multiple dilated loops of bowel and air-fluid levels on x-ray this morning. I will obtain a small-bowel follow-through today for better diagnostic and potentially therapeutic purposes. If he does not respond to ongoing therapy as above within the next 12-24 hours and he is likely require laparotomy. I discussed this with him in some detail today. He and his had multiple questions which I answered to their satisfaction. Orders were written. We will proceed as above.
[2018-02-25] MEDS: ONDANSETRON 4 MG/2 ML INJ IV (11:46)
[2018-02-25] MEDS: POTASSIUM CHLORIDE 80 MEQ in SODIUM CHLORIDE 0.9% 1,000 ML 130 ML IV (11:50)
--- NOTE | 2018-02-25 15:52 | CM.DANOTE ---
DCP/Assessment: Reviewed chart. Patient is a 67yr old male admitted to [facility] with SBO. PCP is Dr. High and primary payor is 1)Medicare 2)[facility]. Patient admitted by Dr. Candelario for SBO. Currently patient has NG tube and is on bowel rest. METAL MODEL BUILDER attempted to meet with patient this AM but he was off floor for testing. Spoke with RN and he reports patient appears to be I with ADL's. Patient resides with [place]/Norma [place] ph# [phone]. At this time d/c needs and date pending. MD attempting bowel rest to resolve SBO before taking patient to surgery. Notified RN that CM team would continue to follow closely for any d/c planning needs that may arise. P: Pending. Anticipate home when medically stable. CM team to re-attempt in person visit prior to patient's discharge. FERNANDEZ Chowdhury
[2018-02-25] MEDS: ENOXAPARIN 40 MG/0.4 ML SYRINGE SUBCUT (21:37)
--- NOTE | 2018-02-25 23:04 | PC.NURSE ---
Addendum entered by Suresh Xiao R.N. 02/25/18 23:44: Excessive thirst correlates to blood sugars in the 200's while NPO. Pt denies history of DM. Original Note: Pt has had difficult time following instruction on PO intake. I have limited him to 150ml of water per shift in a facility provided cup to allow for accurate measurement. Small sips for oral comfort have been allowed per MD. I had found him to have consumed nearly 40 ounces from a personal cup during the shift. I clarified the importance of following the MD order while educating him on the implications of an NG tube on available stomach acid. Spouse in room was supportive of the decision to follow the MD order.
[2018-02-26] VITALS (15 sets, daily range): BP systolic 116–144; BP diastolic 61–81; PULSE 49–61; RESP 12–18; TEMP 36.5–37.2; O2SAT 91–98; BMI 37.4
[2018-02-26] MEDS: SODIUM CHLORIDE 0.9% 1,000 ML 125 ML IV ×2 (02:55→10:32)
[2018-02-26 05:54] LABS: Add Manual Diff / Slide Review NO; Basophils Percent Auto 0.7 % (0-2); Eosinophils Percent Auto 2.6 % (2-4); Hematocrit 38.9 % (41-53); Hemoglobin 13.5 g/dL (13.5-17.5); Lymphocytes Percent Auto 21.9 % (25-40); Mean Corpuscular HGB Conc 34.7 % (30-36); Mean Corpuscular Hemoglobin 32.5 PG (26-34); Mean Corpuscular Volume 93.9 fL (80-100); Monocytes Percent Auto 16.9 % (3-14); Neutrophils Absolute Auto 2200 /uL (3000-5900); Neutrophils Percent Auto 57.9 % (50-75); Platelet Count 111 X10^3/uL (150-400); Red Blood Cell Count 4.15 X10^6/uL (4.5-5.9); Red Cell Distribution Width 12.1 % (11.6-14.8); White Blood Cell Count 3.9 X10^3/uL (4.5-11.0)
[2018-02-26 05:57] LABS: BUN Creatinine Ratio 37.5 (6-22); Blood Urea Nitrogen 30 mg/dL (9-20); Calcium 8.3 mg/dL (8.4-10.2); Carbon Dioxide 34 mmol/L (22-32); Chloride 99 mmol/L (98-107); Estimated Glomerular Filt Rate > 60.0 mL/min (>60); Glucose 187 mg/dL (80-110); HEMOLYSIS < 15 (0-50); Sodium 143 mmol/L (137-145)
[2018-02-26 06:06] LABS: Potassium 2.6 mmol/L (3.4-5.1)
[2018-02-26] MEDS: ATENOLOL 25 MG TABLET PO (08:24)
[2018-02-26] MEDS: hydroCHLOROthiazide 25 MG TABLET PO (08:24)
[2018-02-26] MEDS: ASPIRIN EC 81 MG TABLET PO (08:24)
[2018-02-26] MEDS: ALLOPURINOL 100 MG TABLET PO (08:24)
[2018-02-26] MEDS: PANTOPRAZOLE 40 MG VIAL IV (08:25)
[2018-02-26] MEDS: CHOLECALCIFEROL (VITAMIN D3) 1,000 UNIT TABLET 2000 UNIT PO (08:25)
[2018-02-26] MEDS: VITAMIN B COMPLEX 1 CAPSULE 1 CAP PO (08:25)
--- NOTE | 2018-02-26 08:52 | PC.NURSE ---
0735: PT UPSET HE HAS NOT BEEN ABLE TO DRINK MUCH WATER OVERNIGHT. C/O THIRST AND STATES MD TOLD HIM YESTERDAY HE COULD DRINK MUCH HE WANTS. THIS AGILE TESTER STATED TO PT THAT FLUID INTAKE WOULD BE CLARIFIED WITH MD UPON ROUNDING TODAY. ENC PT TO KEEP WITH SIPS AND CHIPS PER ORDERS. NG TUBE TURNED OFF WHILE PO MEDS GIVEN.
--- NOTE | 2018-02-26 10:26 | PC.NURSE ---
IN FOR ROUNDING. PLAN TO GO TO SURGERY TODAY. NOW STRICT NPO. WATER REMOVED FROM BEDSIDE. ORAL SWABS GIVEN.
--- NOTE | 2018-02-26 10:56 | CM.DANOTE ---
DCP Assessment: Reviewed chart. Met w/pt and his Norma at bedside, explained SW role. Pt eager to understand next steps in POC and wants to go home. Pt lives w/spouse, they have two adult children that live in [facility]. Pt active and indp at baseline and expects no DC needs once medically cleared. Spouse will transport back home when ready. No barriers to safe DC home identified at this time. Pt eager to get home soon. CM team will remain available in case needs/concerns arise. FERNANDEZ Iqbal
[2018-02-26] MEDS: INSULIN ASPART 100 UNIT/ML INSULN PEN SUBCUT (12:05)
[2018-02-26] MEDS: POTASSIUM CHLORIDE 80 MEQ in SODIUM CHLORIDE 0.9% 1,000 ML 130 ML IV (12:06)
[2018-02-26] MEDS: MAGNESIUM SULFATE 2 GM/50 ML PIGGYBACK IV (12:07)
--- NOTE | 2018-02-26 12:31 | P.PN_ITS ---
Subjective Date Patient Seen: 02/26/18 Time Patient Seen: 10:29 Interval history: Patient remains subjectively distended. Denies significant pain however. No subjective fever or chills. No nausea. His nasogastric tube output is unreliable since he has been taking significant amounts of ice chips and water orally. He had 1 small episode of flatus early this morning but none since. No bowel movement other than the liquid consistent with passage of the oral contrast after yesterday's small-bowel follow-through. No stool. Exam Vital Signs (past 8 hours): Vital Signs - 8 hr 3 02/26/18 05:45 02/26/18 08:00 02/26/18 09:50 Temperature 97.7 F 98.9 F Pulse Rate 51 L 61 Respiratory Rate 16 18 Blood Pressure 130/78 H 131/75 H Pulse Oximetry 95 95 98 Pulse Oximetry 98 Oxygen Delivery Method Room Air Narrative Exam Narrative: Well-nourished well-developed male sitting comfortably in bedside chair in no acute distress. Alert oriented x3. His is once again at the bedside during my entire visit. Remains afebrile and otherwise hemodynamically stable. Adequate but marginal urine output last evening. Chest is clear to auscultation bilaterally. Regular rate and rhythm. Abdomen remains markedly distended and tympanitic with palpable loops of bowel. No other masses however. He is otherwise relatively soft and nontender. Certainly no guarding or rebound. Extremities show no clubbing or cyanosis Objective Labs Result Diagrams: 02/26/18 05:22 02/26/18 05:22 Labs: Laboratory Results - last 24 hr 02/26/18 02/26/18 05:22 05:22 WBC 3.9 L RBC 4.15 L Hgb 13.5 Hct 38.9 L MCV 93.9 MCH 32.5 MCHC 34.7 RDW 12.1 Plt Count 111 L Neut % (Auto) 57.9 Lymph % (Auto) 21.9 L [place] % (Auto) 16.9 H Eos % (Auto) 2.6 Baso % (Auto) 0.7 Neut # (Auto) 2200 L Sodium 143 Potassium 2.6 L* Chloride 99 Carbon Dioxide 34 H BUN 30 H Creatinine 0.80 Estimated GFR > 60.0 BUN/Creatinine Ratio 37.5 H Glucose 187 H Calcium 8.3 L Assessment & Plan Plan: Plan: 67-year-old male with ongoing small bowel obstruction of unclear etiology. He has actually been obstructed by history for at least 9 days now and has failed non operative management over the last 48 hr since admission. Because he has failed to progress to any degree I have recommended exploratory laparotomy with possible bowel resection today. Technical details of that operation were discussed with the patient and his at length. Anticipated further hospitalization and recovery were also explained. Risks, benefits, alternatives to surgery were discussed in detail. Risks including but not limited to anesthesia, aspiration, bleeding, need for transfusion, infection, pain, scar, poor wound healing especially with his diabetes, abdominal abscess, need for ostomy, anastomotic leak, bladder injury, ureter injury, colon injury, small bowel injury, and need for further major abdominal surgery were all discussed in detail. We also discussed the significant possibility of prolonged postoperative ileus. All questions were answered to his satisfaction , and he voiced understanding. Consent was placed on the chart. We will proceed later today as above.
--- NOTE | 2018-02-26 16:21 | PM.PREOP ---
Pre-operative Note Interval Note Pre-op Check: History & Physical Reviewed by Physician and Exam Performed
[2018-02-26] MEDS: LACTATED RINGERS 1,000 ML 42 ML IV ×2 (17:30→22:14)
--- NOTE | 2018-02-26 19:58 | SUR.HOLD ---
assumed care from zeyad galvin to kisha, pt w/o macarena call light in reach and at bedside- report to edenilson hyde
[2018-02-26] MEDS: CEFOTETAN 2 GM/50 ML PIGGYBACK IV (21:28)
[2018-02-26] MEDS: HYDROMORPHONE 0.5 MG INJ IV (23:41)
--- NOTE | 2018-02-26 23:41 | PM.OP.1 ---
Operative Date/Time/Diagnoses - Date of procedure: 02/26/18 Time of procedure: 23:41 Pre-op diagnosis: Distal small-bowel obstruction Post-op diagnosis: same (Distal small-bowel obstruction secondary to adhesions at terminal ileum) Procedure & Clinicians Procedure: Exploratory laparotomy with lysis of adhesions Same procedure as scheduled: Yes Indications: 67-year-old male with 1 week history of abdominal distension and vomiting. He has been unable to tolerate a diet. He has also had lack of flatus or bowel function. Examination and evaluation were consistent with distal small-bowel obstruction that did not resolve after 48 hr of non operative hospital management. Laparotomy was recommended. Surgeon: Devin Candelario Click Yes if Unassisted: Yes Anesthesia Type: General Operative Notes Findings: 1. Moderately dilated fluid-filled small bowel from the distal ileum to the ligament of Treitz with decompressed terminal ileum secondary to transition point caused by adhesion at that level 2. No evidence of ischemic bowel or perforation 3. Normal appendix 4. Normal cecum and proximal ascending colon 5. Normal sigmoid colon 6. Moderate clear ascites upon entering the abdomen but no evidence of pus, peritoneal lesions, or malignancy 7. No retroperitoneal or pelvic masses upon palpation 8. Grossly normal liver to palpation 9. Nasogastric tube in good position within the stomach by palpation 10. Grossly normal omentum without lesions 11. No evidence of small-bowel neoplasm or retroperitoneal masses 12. Status post cholecystectomy Closure Type: primary Specimen(s): none sent Implants & Drains: None Applied: catheter (Hernadez catheter at the beginning of the case for urinary bladder decompression) Estimated Blood Loss (mL): 50 Blood products transfused: none Procedure in detail: After obtaining informed consent the patient was brought to the operating room placed supine on the table. After satisfactory induction of anesthesia a Hernadez catheter was inserted to decompress the urinary bladder. Eighteen Portuguese nasogastric tube was placed to the left naris to replace the existing 14 Portuguese tube so that more effective gastric decompression could be obtained. Abdomen was prepped and draped in usual sterile fashion. A SCOAP time-out was performed per standard protocol. Vertical midline incision was created with a 10. Scalpel blade followed by the Bovie to achieve hemostasis. Dissection was carried down through the subcutaneous tissue with the Bovie and the rectus fascia was identified. Fascia was divided with the Bovie in the midline near the umbilicus. Under direct visualization the peritoneum was entered between hemostats with a 10. Scalpel blade followed by the surgeon's fingers. The remaining portion of the peritoneum and rectus fascia were then divided in the midline with the Bovie over the surgeon's inserted fingers. Bookwalter retractor was used to provide exposure. Abdomen was visually and manually explored. Small bowel was exteriorized from the ligament Treitz to the distal ileum. Findings were as above. Adhesions in the right lower quadrant at the terminal ileum were taken down sharply with Metzenbaum scissors under direct visualization. At this point the entire small bowel was visualized from the ligament of Treitz to the ileocecal valve a 2nd time. Again, no evidence of ischemia or other abnormalities were appreciated. No evidence of obstruction remained, and we were able to milk enteric contents through the transition point into the ileocecal valve. After relieving the obstruction and finding no other abnormalities the abdomen was irrigated with copious amounts of warm sterile saline solution which was suctioned and noted to be clear. Hemostasis was verified and the fascia was closed with 2 individual running #1 Prolene suture tied in the midline. Subcutaneous tissue was irrigated and noted to be hemostatic. Skin was closed with jean-claude. Sterile dressing was applied. Anesthesia was reversed and the patient extubated in the operating room. He was taken recovery in stable condition. Complications: none Condition: stable Disposition: PACU Plan for aftercare: 1. Return to the surgical floor for ongoing convalescence 2. Await bowel function
[2018-02-27] VITALS (15 sets, daily range): BP systolic 116–145; BP diastolic 63–80; PULSE 57–78; RESP 18–20; TEMP 36.1–37.2; O2SAT 93–97
--- NOTE | 2018-02-27 00:21 | SUR.PHASEI ---
0010 late entry transferred to acute care; report was previously phoned to RN. Resp unlabored, skin warm and dry, O2 at 4LNP, SHIP SUPERINTENDENT repositioned for comfort and effectiveness. Abdominal dressing remains CDI, belly distented as in the OR. Unmeasurable amount of brown drainage in NG tubing. Upon transfer, reports that pain is very localized over lower incision (as throughout PACU). at bedside. Patient awake, talking, oriented and appropriate. VSS. SCDs on, NG to Low intermittent suction. Stable and appreciative.
[2018-02-27] MEDS: SODIUM CHLORIDE 0.9% 1,000 ML 100 ML IV ×2 (03:48→14:49)
--- NOTE | 2018-02-27 05:07 | PC.NURSE ---
NOC Note: Pt returned to his room at approx 0020, NG tube set to LIWS as ordered, CREW BOSS set up as ordered. Drsg to ABD is CDI, Pt has denied any nausea. PP++, SCD's in place. Hernadez cath is patent draining dark yellow urine. RT was up to see patient and do teaching for I.S. use. Pt reported pain at 2/10 upon arrival and states that current pain level is between 1-2/10. Pt has tolerated ice chips, reports that is mouth feel dry and he feel he is dehydrated. IV fluids running as ordered.
[2018-02-27] MEDS: HYDROMORPHONE PCA 6 MG/30 ML PCA.VIAL IV (05:52)
[2018-02-27] MEDS: INSULIN ASPART 100 UNIT/ML INSULN PEN SUBCUT ×3 (05:59→18:05)
[2018-02-27 06:25] LABS: Add Manual Diff / Slide Review NO; Basophils Percent Auto 0.3 % (0-2); Eosinophils Percent Auto 0.6 % (2-4); Lymphocytes Percent Auto 5.3 % (25-40); Mean Corpuscular HGB Conc 34.9 % (30-36); Mean Corpuscular Volume 94.7 fL (80-100); Monocytes Percent Auto 7.6 % (3-14); Neutrophils Absolute Auto 5800 /uL (3000-5900); Neutrophils Percent Auto 86.2 % (50-75); Platelet Count 130 X10^3/uL (150-400); Red Blood Cell Count 4.55 X10^6/uL (4.5-5.9); Red Cell Distribution Width 12.4 % (11.6-14.8); White Blood Cell Count 6.7 X10^3/uL (4.5-11.0)
[2018-02-27 06:27] LABS: BUN Creatinine Ratio 27.5 (6-22); Blood Urea Nitrogen 22 mg/dL (9-20); Calcium 8.1 mg/dL (8.4-10.2); Carbon Dioxide 24 mmol/L (22-32); Chloride 102 mmol/L (98-107); Estimated Glomerular Filt Rate > 60.0 mL/min (>60); Glucose 194 mg/dL (80-110); HEMOLYSIS < 15 (0-50); Potassium 3.3 mmol/L (3.4-5.1); Sodium 142 mmol/L (137-145)
[2018-02-27] MEDS: CEFOTETAN 2 GM/50 ML PIGGYBACK IV (09:01)
[2018-02-27] MEDS: HYDROMORPHONE PCA 6 MG/30 ML PCA.VIAL 1.2 MG IV (13:13)
--- NOTE | 2018-02-27 16:12 | PM.PN.1 ---
Subjective Date Patient Seen: 02/27/18 Time Patient Seen: 16:12 Interval history: Patient denies nausea. No vomiting. Describes abdominal pain as soreness but no significant pain. However, the Dilaudid SUPERVISOR TRAVEL TRAILER is effective. Has not yet been out of bed today. No subjective fever or chills. No flatus or bowel movement. Exam Vital Signs (past 8 hours): Pulse Oximetry 93 Oxygen Delivery Method Room Air Oxygen Flow Rate 2 Narrative Exam Narrative: Well-nourished well-developed mildly obese male in no acute distress lying comfortably in bed. His is once again at the bedside during my visit. Patient is alert oriented x3. No fevers or tachycardia. Blood pressure normal. Urine output is 800 cc over the last 24 hr. However, urine is slightly dark in color. Nasogastric tube output is approximately 300 cc since surgery last evening. Output is quite bilious however. Regular rate and rhythm Abdomen is soft but distended. He is appropriately tender. Dressing is clean, dry, and intact. No guarding or rebound. No masses. Extremities show no clubbing or cyanosis Objective Labs Result Diagrams: 02/27/18 06:05 02/27/18 06:05 Labs: Laboratory Results - last 24 hr 02/26/18 02/27/18 02/27/18 17:43 06:05 06:05 WBC 6.7 D RBC 4.55 Hgb 15.0 Hct 43.0 MCV 94.7 MCH 33.0 MCHC 34.9 RDW 12.4 Plt Count 130 L Neut % (Auto) 86.2 H D Lymph % (Auto) 5.3 L [place] % (Auto) 7.6 Eos % (Auto) 0.6 L Baso % (Auto) 0.3 Neut # (Auto) 5800 Sodium 142 Potassium 3.3 L Chloride 102 Carbon Dioxide 24 BUN 22 H Creatinine 0.80 Estimated GFR > 60.0 BUN/Creatinine Ratio 27.5 H Glucose 194 H Calcium 8.1 L Blood Type O Positive Antibody Screen Negative Assessment & Plan Plan: Plan: 59-year-old male now nearly postoperative day 1. From exploratory laparotomy with lysis of adhesions. He is hemodynamically stable. Has anticipated postoperative ileus at this stage. Encouraged him to continue incentive spirometry, deep breathing, and coughing for pulmonary toilet. Continue DVT prophylaxis with SCDs and Lovenox. Continue Hernadez catheter until more mobile. I anticipate he will be able to have the catheter removed tomorrow morning. Continue SUPERVISOR TRAVEL TRAILER current settings. Continue sliding scale insulin with high-dose regimen since his sugars continued to run somewhat high. This morning glucose was 194. Remains mildly hypokalemic but is requiring ongoing isotonic fluid resuscitation. We will increase the rate to 125 cc/hour given marginal urine output. I adjusted his nasogastric tube as the blue port was not functioning properly. Discussed this with the nursing staff. Returned tube to low intermittent wall suction with good effect at that time. I discussed the operative findings with the patient at length. All of the patient's questions as well as those of his were answered to their satisfaction. Orders were written. They understand my associate, Dr. Mccurdy, will be attending to his care over the next several days until my return.
--- NOTE | 2018-02-27 20:30 | PC.NURSE ---
patient urine is tea-colored in grant bag. ivf rate was already increased to 125/h at start of shift per verbal order by dr. Candelario. will document and monitor i&o closely. patient has been up and walking in room, brushed teeth, and is sitting up in chair at this time. call light in reach, at bedside.
[2018-02-27] MEDS: ENOXAPARIN 40 MG/0.4 ML SYRINGE SUBCUT (22:44)
[2018-02-27] MEDS: HYDROMORPHONE PCA 6 MG/30 ML PCA.VIAL 1.8 MG IV (22:49)
[2018-02-27] MEDS: SODIUM CHLORIDE 0.9% 1,000 ML 125 ML IV (22:50)
[2018-02-28] VITALS (8 sets, daily range): BP systolic 138–148; BP diastolic 67–90; PULSE 60–72; RESP 16–18; TEMP 36.6–37.6; O2SAT 92–99
[2018-02-28] MEDS: INSULIN ASPART 100 UNIT/ML INSULN PEN SUBCUT ×3 (06:24→18:01)
[2018-02-28] MEDS: HYDROMORPHONE PCA 6 MG/30 ML PCA.VIAL IV ×3 (06:31→21:23)
[2018-02-28] MEDS: SODIUM CHLORIDE 0.9% 1,000 ML 125 ML IV (07:02)
--- NOTE | 2018-02-28 13:49 | P.PN_ITS ---
Subjective Date Patient Seen: 02/28/18 Time Patient Seen: 13:02 Interval history: Patient feels sore but otherwise doing okay. He feels a lot of rumbling but has not passed any flatus. Has been taking allow ice chips according nursing. Exam Vital Signs (past 8 hours): Vital Signs - 8 hr 3 02/28/18 06:22 02/28/18 07:30 02/28/18 12:00 Temperature 98.7 F 97.9 F 98.3 F Pulse Rate 67 72 69 Respiratory Rate 17 16 16 Blood Pressure 144/82 H 138/80 H 145/81 H Pulse Oximetry 96 96 95 Pulse Oximetry 95 Oxygen Delivery Method Room Air Oxygen Flow Rate 0 Narrative Exam Narrative: Obese cooperative in no apparent distress. Lungs are clear. Fairly good effort. Heart regular rate and rhythm without murmur gallop. Abdomen is protuberant but soft. Dressing is intact. Objective Labs Result Diagrams: 02/27/18 06:05 02/27/18 06:05 Assessment & Plan Post-op Postoperative Procedures Operation Date: 02/26/18 21:00 Actual Procedures Side Surgeon p Exploratory Laparotomy, lyses of adhesions, release of distal small bowel obstruction Devin Candelario MD Postoperative day: 2 Postoperative status: doing well Postoperative plan: routine post-op care, see orders and other (Dual coil access to see if we can stimulate GI tract function and get some of the gas out of his system. Change IV fluid and give him a bolus. Hernadez out.) Time Spent With Patient less than 15 minutes
[2018-02-28] MEDS: SODIUM CHLORIDE 0.9% 1,000 ML 500 ML IV (14:44)
[2018-02-28] MEDS: BISACODYL 10 MG SUPP PR (14:45)
--- NOTE | 2018-02-28 15:03 | PC.NURSE ---
PT TAKING IN MORE ICE CHIPS THAN ADVISED BY STAFF. MD NOTIFIED. PER MD ONLY 1 CUP ICE CHIPS PER SHIFT. PT NOTIFIED AND VERBALIZED UNDERSTANDING.
[2018-02-28] MEDS: DEXTROSE 5%-0.45% NS 1,000 ML 150 ML IV ×2 (16:40→22:44)
[2018-02-28] MEDS: ENOXAPARIN 40 MG/0.4 ML SYRINGE SUBCUT (21:26)
[2018-03-01] MEDS: INSULIN ASPART 100 UNIT/ML INSULN PEN SUBCUT ×4 (00:35→18:58)
[2018-03-01 00:46] VITALS: O2SAT 97
[2018-03-01] MEDS: DEXTROSE 5%-0.45% NS 1,000 ML 150 ML IV ×2 (05:32→13:28)
[2018-03-01 06:27] VITALS: BP 135/81; PULSE 60; RESP 16; TEMP 36.8; O2SAT 95
[2018-03-01 07:45] LABS: Add Manual Diff / Slide Review NO; Basophils Percent Auto 0.7 % (0-2); Eosinophils Percent Auto 3.1 % (2-4); Hematocrit 37.6 % (41-53); Hemoglobin 13.1 g/dL (13.5-17.5); Lymphocytes Percent Auto 12.3 % (25-40); Mean Corpuscular Hemoglobin 32.4 PG (26-34); Mean Corpuscular Volume 92.8 fL (80-100); Neutrophils Absolute Auto 4600 /uL (3000-5900); Neutrophils Percent Auto 74.9 % (50-75); Platelet Count 119 X10^3/uL (150-400); Red Blood Cell Count 4.05 X10^6/uL (4.5-5.9); Red Cell Distribution Width 12.4 % (11.6-14.8); White Blood Cell Count 6.1 X10^3/uL (4.5-11.0)
[2018-03-01 07:55] VITALS: O2SAT 97
[2018-03-01 08:17] LABS: Blood Urea Nitrogen 9 mg/dL (9-20); Calcium 7.7 mg/dL (8.4-10.2); Carbon Dioxide 30 mmol/L (22-32); Chloride 106 mmol/L (98-107); Estimated Glomerular Filt Rate > 60.0 mL/min (>60); Glucose 200 mg/dL (80-110); HEMOLYSIS < 15 (0-50); Magnesium 1.6 mg/dL (1.6-2.3); Potassium 3.3 mmol/L (3.4-5.1); Sodium 144 mmol/L (137-145)
--- NOTE | 2018-03-01 08:59 | PM.PN.1 ---
Subjective Date Patient Seen: 03/01/18 Time Patient Seen: 08:49 Interval history: The patient is postop day 3 from a exploration for bowel obstruction. He is feeling very well. Distal sore he says. Had 4 bowel movements though only 1 is recorded in the chart. Passing large amounts of flatus. NG drainage is unreliable because he is taking a great deal of fluid/ice. Exam Vital Signs (past 8 hours): Vital Signs - 8 hr 03/01/18 06:27 Temperature 98.3 F Pulse Rate 60 Respiratory Rate 16 Blood Pressure 135/81 H Pulse Oximetry 95 Pulse Oximetry 95 Oxygen Delivery Method CPAP Oxygen Flow Rate 0 Narrative Exam Narrative: Morbidly protuberant and soft. Midline is intact. Extensive bruising lower part of the abdomen. No cellulitis. His lungs are clear to auscultation without rales or rhonchi. Heart regular rate and rhythm without murmur gallop. Good respiratory effort. Objective Labs Result Diagrams: 03/01/18 07:30 03/01/18 07:30 Labs: Laboratory Results - last 24 hr 03/01/18 03/01/18 07:30 07:30 WBC 6.1 RBC 4.05 L Hgb 13.1 L Hct 37.6 L MCV 92.8 MCH 32.4 MCHC 35.0 RDW 12.4 Plt Count 119 L Neut % (Auto) 74.9 Lymph % (Auto) 12.3 L [place] % (Auto) 9.0 Eos % (Auto) 3.1 Baso % (Auto) 0.7 Neut # (Auto) 4600 Sodium 144 Potassium 3.3 L Chloride 106 Carbon Dioxide 30 BUN 9 Creatinine 0.50 L Estimated GFR > 60.0 BUN/Creatinine Ratio 18.0 Glucose 200 H Calcium 7.7 L Magnesium 1.6 Assessment & Plan Plan: Plan: Patient postop. Continue IV fluids. Will remove NG tube. We will allow him to have a I still. He may shower. His potassium is low. Will replace his potassium. We will start his allopurinol and atenolol.
--- NOTE | 2018-03-01 09:03 | P.PN_ITS ---
Subjective Date Patient Seen: 03/01/18 Time Patient Seen: 08:49 Interval history: The patient is postop day 3 from a exploration for bowel obstruction. He is feeling very well. Distal sore he says. Had 4 bowel movements though only 1 is recorded in the chart. Passing large amounts of flatus. NG drainage is unreliable because he is taking a great deal of fluid/ ice. Exam Vital Signs (past 8 hours): Vital Signs - 8 hr 3 03/01/18 06:27 Temperature 98.3 F Pulse Rate 60 Respiratory Rate 16 Blood Pressure 135/81 H Pulse Oximetry 95 Pulse Oximetry 95 Oxygen Delivery Method CPAP Oxygen Flow Rate 0 Narrative Exam Narrative: Morbidly protuberant and soft. Midline is intact. Extensive bruising lower part of the abdomen. No cellulitis. His lungs are clear to auscultation without rales or rhonchi. Heart regular rate and rhythm without murmur gallop. Good respiratory effort. Objective Labs Result Diagrams: 03/01/18 07:30 03/01/18 07:30 Labs: Laboratory Results - last 24 hr 03/01/18 03/01/18 07:30 07:30 WBC 6.1 RBC 4.05 L Hgb 13.1 L Hct 37.6 L MCV 92.8 MCH 32.4 MCHC 35.0 RDW 12.4 Plt Count 119 L Neut % (Auto) 74.9 Lymph % (Auto) 12.3 L [place] % (Auto) 9.0 Eos % (Auto) 3.1 Baso % (Auto) 0.7 Neut # (Auto) 4600 Sodium 144 Potassium 3.3 L Chloride 106 Carbon Dioxide 30 BUN 9 Creatinine 0.50 L Estimated GFR > 60.0 BUN/Creatinine Ratio 18.0 Glucose 200 H Calcium 7.7 L Magnesium 1.6 Assessment & Plan Plan: Plan: Patient postop. Continue IV fluids. Will remove NG tube. We will allow him to have a I still. He may shower. His potassium is low. Will replace his potassium. We will start his allopurinol and atenolol.
[2018-03-01] MEDS: MAGNESIUM SULFATE 2 GM/50 ML PIGGYBACK IV (10:42)
[2018-03-01] MEDS: ATENOLOL 25 MG TABLET PO (10:47)
[2018-03-01] MEDS: ALLOPURINOL 100 MG TABLET PO (10:47)
--- NOTE | 2018-03-01 12:58 | CM.DPC ---
DCP/continued: Reviewed chart. Patient admitted with SBO, underwent surgery with Dr. Candelario and had NG tube taken out today. CREDIT RISK MANAGEMENT DIRECTOR met with patient and spouse/Norma at bedside explained role. At this time patient unsure what day he will be discharged. Patient very relieved that NG tube out and reports feeling much better. Current plan is for patient to d/c home with supportive spouse when medically stable. Important Message from Medicare signed today. P: Home when stable. CM team to continue to follow. FERNANDEZ Chowdhury
[2018-03-01] MEDS: POTASSIUM CHLORIDE 40 MEQ in SODIUM CHLORIDE 0.9% 500 ML 130 ML IV (13:19)
[2018-03-01] MEDS: HYDROMORPHONE PCA 6 MG/30 ML PCA.VIAL IV (13:27)
[2018-03-01 14:25] VITALS: BP 135/75; PULSE 52; RESP 16; TEMP 37; O2SAT 97
--- NOTE | 2018-03-01 14:30 | PC.NURSE ---
UPON ROUNDING THIS AM. REMOVED DRSG. MIDLINE VERTICAL INCISION WELL APPROXIMATED WITH CIARA. LARGE AMT OF BRUISING NOTED TO LOWER ABD AND LEFT SIDE OF INCISION. NG TUBE REMOVED PER MD ORDERS. PER MD OKAY TO 1 CUP ICE CHIPS PER DAY. PT STATED TO THAT HE HAD 4 BM'S YESTERDAY AND THEN NOTIFIED THIS EXT JS DEVELOPER THAT HE ACTUALLY HAD 2 BM'S YESTERDAY AND 2 EPISODE OF FLATUS ON TOILET.
[2018-03-01 16:55] VITALS: BP 140/87; PULSE 55; RESP 18; TEMP 36.4; O2SAT 99
[2018-03-01 19:45] VITALS: BP 132/78; PULSE 51; RESP 18; TEMP 36.8; O2SAT 98
[2018-03-01] MEDS: ENOXAPARIN 40 MG/0.4 ML SYRINGE SUBCUT (21:27)
--- NOTE | 2018-03-01 22:24 | PC.NURSE ---
Addendum entered by Libia Frost R.N. 03/01/18 23:28: 2115- Pt had greenish brown watery stool BM. Flatus ++, BT++. Original Note: Kelly shift- ABD midline incision DEHAIRER, well approximated with 29 jean-claude, CDI, bruising to left and right sides, of lower ABD incision. tolerating ice chips, 1 cup for this shift. BT++, flatus++, 1 watery stool this shift. Dilaudid HAND BOOKBINDER un used, rates pain 0/10. ABD with some firmness and non-tender, large and round, but this is baseline. CBG-182 @ 1800, given 2 units per ss. L hand D5 1/2NS @ 150. K rider completed. Pt remains NPO status. 98-99%RA, LS clear. , Jackie, rooming in. call light in reach, wearing own CPAP to sleep without O2 bleed in.
[2018-03-02] VITALS (8 sets, daily range): BP systolic 125–146; BP diastolic 73–93; PULSE 52–62; RESP 16–20; TEMP 36.3–37.2; O2SAT 97–100
[2018-03-02] MEDS: INSULIN ASPART 100 UNIT/ML INSULN PEN SUBCUT ×4 (00:17→17:27)
[2018-03-02] MEDS: DEXTROSE 5%-0.45% NS 1,000 ML 150 ML IV ×3 (00:37→19:50)
[2018-03-02] MEDS: HYDROMORPHONE PCA 6 MG/30 ML PCA.VIAL IV (05:26)
[2018-03-02] MEDS: ALLOPURINOL 100 MG TABLET PO (09:14)
[2018-03-02] MEDS: ATENOLOL 25 MG TABLET PO (09:14)
--- NOTE | 2018-03-02 11:22 | P.PN_ITS ---
Subjective Date Patient Seen: 03/02/18 Time Patient Seen: 11:23 Interval history: Patient denies nausea or vomiting. He has done well without is nasogastric tube. Tolerating water and some ice chips without pain or distention. Reports multiple episodes of flatus since yesterday as well as to semi solid bowel movements. His pain is quite minimal and otherwise well controlled. He is ambulating without difficulty. No subjective fever or chills. He is becoming hungry and wishes to eat today. Exam Vital Signs (past 8 hours): Vital Signs - 8 hr 3 03/02/18 06:00 03/02/18 07:17 Temperature 97.3 F L 97.5 F L Pulse Rate 62 58 L Respiratory Rate 20 16 Blood Pressure 146/93 H 131/76 H Pulse Oximetry 97 97 Pulse Oximetry 97 Oxygen Delivery Method Room Air,CPAP Oxygen Flow Rate 0 Narrative Exam Narrative: Well-nourished well-developed obese male in no acute distress sitting comfortably in the bed with his at the bedside. He is alert oriented x3. He has had no fevers and otherwise has normal blood pressure and heart rate since surgery. Sugars are controlled with sliding scale insulin Adequate urine output Chest is clear to auscultation bilaterally with regular rate and rhythm. Abdomen is soft and much less distended. He is not tympanitic today. He is minimally tender to palpation with no guarding or rebound. Incision is clean, dry, and intact although he does have bilateral lower quadrant ecchymoses. No hematomas. No wound drainage. No erythema. Extremities show no clubbing or cyanosis Objective Labs Result Diagrams: 03/01/18 07:30 03/01/18 07:30 Assessment & Plan Plan: Assessment/Plan Narrative: 67-year-old male with ongoing uncomplicated postoperative course with resolving anticipated postoperative ileus. We will change in oral medication including analgesia today. Allow a clear liquid diet. Continue to ambulate aggressively. He may shower. Discontinue Dilaudid WIRELESS INTERNET INSTALLER. Saline lock the IV if he tolerates liquids well. Add stool softeners and Senokot. He has been restarted on his usual home medications. If he does well with clear liquids over the course of the next 24 hr then we will advance him to a no concentrated carbohydrate diet. I discussed all the above with him and his in detail. All questions were answered to his satisfaction, and he voiced understanding. Orders were written. Plan discussed with attending nursing staff.
[2018-03-02] MEDS: ENOXAPARIN 40 MG/0.4 ML SYRINGE SUBCUT (21:11)
[2018-03-02] MEDS: DOCUSATE 100 MG CAPSULE PO (21:11)
[2018-03-02] MEDS: SENNOSIDES 8.6 MG TABLET PO (21:11)
--- NOTE | 2018-03-03 01:15 | PC.NURSE ---
Pt. & spouse sound asleep. Resp. equal & unlabored. CPAP inplaced, will monitor & assess when he wakes up.
[2018-03-03 01:48] VITALS: BP 140/81; PULSE 51; RESP 20; TEMP 36.3; O2SAT 98
[2018-03-03 01:50] VITALS: O2SAT 98
[2018-03-03 05:09] VITALS: BP 144/76; PULSE 56; RESP 20; TEMP 36.3; O2SAT 98
[2018-03-03 08:00] VITALS: BP 147/88; PULSE 54; RESP 19; TEMP 36.5; O2SAT 98
[2018-03-03 09:05] VITALS: O2SAT 98
[2018-03-03] MEDS: ATENOLOL 25 MG TABLET PO (09:08)
[2018-03-03] MEDS: ALLOPURINOL 100 MG TABLET PO (09:08)
[2018-03-03] MEDS: INSULIN ASPART 100 UNIT/ML INSULN PEN SUBCUT (09:09)
--- NOTE | 2018-03-03 10:34 | P.DS_ITS ---
History of Present Illness Date Patient Seen: 03/03/18 Time Patient Seen: 10:32 Chief complaint: Small bowel obstruction Narrative: Patient admitted with small-bowel obstruction. He failed non operative conservative management required surgical intervention. He tolerated this well. Currently he has bowel function with minimal pain. Tolerating a no concentrated carbohydrate diet. Ambulating without difficulty. He is now stable for discharge to home. Discharge Providers Date of admission: 02/24/18 16:30 Primary care physician: Rory High MD Consults: 02/26/18 17:23 Consult to Respiratory Therapy Evaluate & Treat Comment: Physician Instructions: Evaluate and treat 02/27/18 00:59 Consult to Respiratory Therapy Evaluate & Treat Comment: Physician Instructions: Evaluate and treat for CPAP protocol Discharge provider: Devin Candelario MD Summary Discharge Diagnosis: 1. Small-bowel obstruction secondary to adhesions 2. Type 2 diabetes mellitus 3. Morbid obesity 4. Hypertension 5. History of atrial fibrillation, resolved 6. Status post cardiac ablation for atrial fibrillation 7. Gout 8. Status post laparoscopic cholecystectomy in the past 9. Nonobstructing nephrolithiasis 10. Postoperative ileus, resolved, not unanticipated given the nature of the surgery. Hospital Course: Patient presented the emergency department with a one-week history of abdominal distention, nausea, vomiting, and inability to tolerate a diet. He also had significant lack of bowel function which was unusual for him. He normally moves his bowels daily. Examination and evaluation including CT scan were consistent with small-bowel obstruction. Patient was admitted to the regular surgical floor with nasogastric tube decompression, bowel rest, and IV fluid resuscitation. He continued to have significant distention without bowel function. Small-bowel follow-through was obtained which confirmed partial small-bowel obstruction. Nevertheless, the patient did not respond to non operative conservative management and was therefore taken to the operating room on February 27, 2018 for exploratory laparotomy with lysis of adhesions. He tolerated this well. Postoperatively he was admitted to the regular surgical floor where he remained afebrile and hemodynamically stable. He was maintained on his usual beta-sharan. However, he did have evidence of hyperglycemia with a blood sugar in excess of 300 at admission. Postop her blood sugars were initially greater than 200. He was placed on sliding scale insulin to which he responded. At the time of discharge his sugars are still slightly high but better controlled in the 140-150 range. He will follow up with his primary care physician within the next week for medical management of his hyperglycemia and type 2 diabetes mellitus. By postoperative day 2. Was nasogastric tube was discontinued. He was advanced to clear liquid diet on postoperative day 3. And was ambulating without difficulty. His incision is healing nicely other than some mild ecchymoses. No evidence of infectious complications. He had return of bowel function with resolution of his ileus by postoperative day 4. He is now tolerating a diet without difficulty. Because of his overall stable condition he is discharged home. Will follow up next week. He has been instructed to call or return sooner for any issues such as wound drainage, fever , nausea, vomiting, inability to tolerate diet, or progressive pain. All questions were answered to his satisfaction, and he voiced understanding. Status at Discharge Cognitive/behavioral status at discharge: Alert oriented x3. Baseline mental status. Functional status at discharge: independent ambulation Overall status at discharge: patient is back to baseline Time Spent with Patient Less than 30 minutes Exam Vital Signs (past 8 hours): Vital Signs - 8 hr 3 03/03/18 05:09 03/03/18 08:00 03/03/18 09:05 Temperature 97.3 F L 97.7 F Pulse Rate 56 L 54 L Respiratory Rate 20 19 Blood Pressure 144/76 H 147/88 H Pulse Oximetry 98 98 98 Pulse Oximetry 98 Oxygen Delivery Method Room Air Oxygen Flow Rate 0 Narrative Exam Narrative: Well-nourished well-developed obese male in no acute distress. Ambulating without difficulty. Alert and oriented x3. is again at the bedside. No fevers and no tachycardia. Heart rate remained stable in the 50s. Sinus rhythm on telemetry. Blood pressure normal. He has had multiple bowel movements with copious flatus over the last 48 hr. He has good oral intake on a no concentrated carbohydrate diet Adequate urine output spontaneously. Hernadez catheter has been discontinued since day 1. Chest clear to auscultation bilaterally. Regular rate and rhythm. Abdomen is soft but obese. Minimally tender to palpation. No guarding or rebound. Wound is clean, dry, and intact. No erythema or drainage. He does have bilateral lower quadrant ecchymoses but no hematoma. Extremities show no clubbing or cyanosis. He does have some hyperpigmentation which is chronic Objective Labs Result Diagrams: 03/01/18 07:30 03/01/18 07:30 Discharge Plan Discharge Plan Patient Disposition: Home, Self-Care Provider Discharge Instructions Diet: Carb-consistent/Diabetic Activity: May shower May ride in vehicle No driving while taking opioid pain medication May climb stairs May walk as much as desired No heavy lifting more than 20 lb for 3 weeks Cold/Heat Therapy: May apply ice pack to incision as needed for comfort Wound Care Report to your healthcare provider any signs of infection, such as:: chills, fever, increased pain and unusual drainage Dressing: No dressing necessary but may cover with dry gauze if desired Discharge Data Primary Care Provider: Donovan High Attending Provider: Devin Candelario Admit Date/Time: 02/24/18 16:30
== END 2018-03-03 12:30 | disposition home or self-care (01) | DRG 337 ==
LOC: ED 14:42 → AC 16:31
PROVIDERS: Specialist; Admitting Provider Surgery; Emergency Provider Emergency Medicine; PCP Family Medicine; Visit Provider Surgery
PROC: (CPT 49000; principal; 2018-02-26 17:45)
DX: K56.50 Intestinal adhesions [bands], unspecified as to partial versus complete obstruction (principal); I10 Essential (primary) hypertension; E87.6 Hypokalemia; R73.9 Hyperglycemia, unspecified
CPT/HCPCS: 36415; 36591; 36592; 43753; 44005; 74022; 74177; 74250; 80048; 80053; 81001; 82962; 83605; 83690; 83735; 85025; 86850; 86900; 86901; 93005; 94760; 94762; 96374; 99222; 99232; 99283; 99285; C9113; J0330; J1170; J1650; J2250; J2405; J2704; J3010; J3480; Q9967

== ENCOUNTER → 2018-04-15 10:47 | Outpatient (CLI) | payer MEDICARE, OTHER, SELFPAY ==
[2018-02-24 18:21] VITALS: BMI 38.0
--- NOTE | 2018-04-15 | DI.US.S_ITS ---
PROCEDURE: US RENAL COMPLETE INDICATIONS: KIDNEY STONES HYDROPHRENOSIS TECHNIQUE: Real-time scanning was performed of the kidneys and bladder, with image documentation. COMPARISON: [facility], CT, CT ABDOMEN PELVIS W CON, 02/24/2018, 13:33. FINDINGS: Kidneys: Kidneys are normal in size. Right kidney measures 16.9 cm long; left kidney measures 16.3 cm long. Right renal cortical thickness is 2.2 cm; left renal cortical thickness is 2.0 cm. Renal cortical echotexture is normal. There is moderate right-sided hydronephrosis and at least 3 calculi are present within the collecting system of the right kidney the largest of which measures up to 1.1 cm at the central right collecting system and between 7 and 9 mm both superiorly and inferiorly. This hydronephrosis persisted after voiding and a ureteral stone may be present as the underlying cause. On the left there are 2 calculi, the largest of which is located at the lower pole measuring up to 1.6 cm and at the upper pole measuring 1 cm. No hydronephrosis. No suspicious solid mass lesions. Bladder: Pre-void bladder volume is 182 mL. Post-void residual is 14 mL. Pre-void images demonstrate no intraluminal masses or stones. On pre-void images, neither ureteral jets are noted with color Doppler interrogation. (Of note, ureteral jets may not be detectable in up to 25% of cases due to insufficient differences in specific gravity between ureteral and bladder urine). Miscellaneous: No free pelvic fluid. IMPRESSION: Stones are present within the collecting system of each kidney, measuring up to 1.6 cm at the lower third collecting system of the left kidney. Slightly smaller stones are seen elsewhere as noted. Right sided moderate hydronephrosis persists after voiding and it is clinical circumstance may represent evidence of a ureteral stone. However, hydronephrosis had been present on the right without a ureteral stone and a ureteral pelvic junction stenosis is considered more likely the cause of that finding. This is seen on prior CT scanning 02/24/18. Dictated by: Marshall Mcbride M.D. on 04/15/2018 at 12:33 Approved by: Marshall Mcbride M.D. on 04/15/2018 at 12:37
== END ==
PROVIDERS: PCP Family Medicine; Visit Provider Urology
DX: N13.2 Hydronephrosis with renal and ureteral calculous obstruction (principal)
CPT/HCPCS: 76770

== ENCOUNTER → 2020-04-24 12:55 | Outpatient (CLI) | payer MEDICARE, OTHER, SELFPAY ==
[2020-04-11 10:55] VITALS: BMI 38.0
--- NOTE | 2020-04-24 | DI.NM.S_ITS ---
PROCEDURE: NM RENAL FLOW AND FUNCTION RADIOPHARMACEUTICAL: 10.4 mCi Tc-99m MAG3 IV. 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 After intravenous administration of Tc-99m MAG3, posterior abdominal radionuclide angiogram and sequential (1 minute per frame) renal images were obtained. A time-activity curve for each kidney was generated and analyzed. COMPARISON: [facility], US, US RENAL COMPLETE, 02/29/2020, 9:34. [facility], CT, CT CHEST ABDOMEN PELVIS WITH CONTRAST, 11/24/2019, 13:10. [facility], CT, CT KUB, 03/29/2020, 16:40. [facility], CT, CT ABDOMEN PELVIS WITH CONTRAST, 04/02/2020, 17:37. FINDINGS: Perfusion: There is normal vascular perfusion to both kidneys. Morphology: Kidneys are normal in shape and size. There are no central photopenic regions to suggest dilated collecting systems. The right ureter and bladder are visualized, and appear normal in morphology. Left ureter is not well seen. Function: Both kidneys demonstrate delayed cortical tracer uptake bilaterally, with [id number] activity of 16 minutes for left kidney and 25 minutes for right kidney (normal ranging is 3-5 minutes). The right kidney contributes 345% of total renal function. The left kidney contributes 65.5% of total renal function. There is normal tracer excretion by both kidneys, and subsequent clearance of activity from both renal collecting systems. IMPRESSION: 1. Delayed cortical uptake and excretion by both kidneys consistent with compromise renal functions, right worse than left. 2. Right kidney contributes 34.5% of total renal function; left kidney contributes 65.5% of total renal function. Dictated by: Ruth Rai M.D. on 04/24/2020 at 14:55 Approved by: Ruth Rai M.D. on 04/24/2020 at 15:59
== END ==
PROVIDERS: PCP Family Medicine; Referring Provider Urology; Visit Provider Urology
DX: N13.5 Crossing vessel and stricture of ureter without hydronephrosis (principal)
CPT/HCPCS: 78708; A9562

== ENCOUNTER → 2024-05-21 12:20 | Outpatient (CLI) | payer OTHER, SELFPAY ==
[2020-04-11 10:55] VITALS: BMI 38.0
[2024-05-21 13:41] LABS: Alanine Aminotransferase 39 IU/L (<50); Albumin 4.4 g/dL (3.5-5.0); Albumin Globulin Ratio 1.6 (1.0-2.8); Alkaline Phosphatase 60 U/L (38-126); Aspartate Aminotransferase 33 IU/L (17-59); BUN Creatinine Ratio 18.9 (6-22); Bilirubin Total 0.5 mg/dL (0.2-1.3); Blood Urea Nitrogen 21 mg/dL (9-20); Calcium 9.5 mg/dL (8.4-10.2); Carbon Dioxide 25 mmol/L (22-32); Chloride 105 mmol/L (98-107); Estimated Glomerular Filt Rate > 60 mL/min (>60); Globulin 2.8 g/dL (1.7-4.1); Glucose 118 mg/dL (80-110); HEMOLYSIS < 15 (0-50); Potassium 5.3 mmol/L (3.4-5.1); Sodium 139 mmol/L (137-145); Total Protein 7.2 g/dL (6.3-8.2)
== END ==
LOC: LAB 12:24
PROVIDERS: PCP Family Medicine; Referring Provider Chiropractor; Visit Provider Chiropractor
DX: E11.9 Type 2 diabetes mellitus without complications (principal)
CPT/HCPCS: 36415; 80053

== ENCOUNTER → 2025-01-11 10:51 | Outpatient (CLI) | payer OTHER, SELFPAY ==
[2020-04-11 10:55] VITALS: BMI 38.0
--- NOTE | 2025-01-11 10:54 | EKG_ITS ---
[place] [id number] [address] [place] [id number] Test Date: 2025-01-11 Pat Name: Salvador Gillette Department: [facility] Room: Gender: Male Music Journalist: [place] : 1950 Requested By: Order Number: [id number] Reading MD: Cody Hester MD Measurements Intervals [place] Rate: 70 P: AK: QRS: -39 QRSD: 128 T: 108 QT: 408 QTc: 440 Interpretive Statements Atrial fibrillation (new since prior) Left axis deviation Nonspecific intraventricular block Minimal voltage criteria for LVH, may be normal variant ( Anselmo product ) T wave abnormality, consider lateral ischemia Electronically Signed On 01-11-2025 15:23:49 PDT by Cody Hester MD
== END ==
LOC: RESP 10:53
PROVIDERS: PCP Family Medicine; Referring Provider Chiropractor; Visit Provider Chiropractor
DX: I48.91 Unspecified atrial fibrillation (principal)
CPT/HCPCS: 93005; 93010